=== PATIENT | female | born 1975 | race African-American/Black ===

== ENCOUNTER 2019-05-24 16:17 | Outpatient (CLI) | payer OTHER ==
--- NOTE | 2019-06-06 09:00 | MMO ---
Bilateral MAMMO Bilat Screen [id number]. CLINICAL HISTORY: Patient is 43 years old and is seen for screening. The patient has no family history of breast cancer. The patient has no personal history of cancer. VIEWS: The views performed were: bilateral craniocaudal with tomosynthesis and bilateral mediolateral oblique with tomosynthesis. FILMS COMPARED: The present examination has been compared to a prior imaging study performed at [facility] on 03/26/2016. MAMMOGRAM FINDINGS: There are scattered fibroglandular densities. There are no suspicious masses, suspicious calcifications, or new areas of architectural distortion. IMPRESSION: THERE IS NO MAMMOGRAPHIC EVIDENCE OF MALIGNANCY. A ROUTINE FOLLOW-UP MAMMOGRAM IN 1 YEAR IS RECOMMENDED. THE RESULTS OF THIS EXAM WERE SENT TO THE PATIENT. ACR BI-RADS Category 1 - Negative MAMMOGRAPHY NOTE: 1. A negative mammogram report should not delay a biopsy if a dominant of clinically suspicious mass is present. 2. Approximately 10% to 15% of breast cancers are not detected by mammography. 3. Adenosis and dense breasts may obscure an underlying neoplasm. Reported by: DAMIAN CARDOSO MD Electonically Signed: [id number]
== END 2019-05-24 16:18 | disposition home or self-care (01) ==
LOC: BICMAMMO 16:17
PROVIDERS: ATTEND Family Medicine
DX: Z12.31 Encounter for screening mammogram for malignant neoplasm of breast (principal)
CPT/HCPCS: 77063; 77067

== ENCOUNTER 2021-06-24 15:26 | Outpatient (CLI) | payer OTHER | END 2021-06-24 15:27 | disposition home or self-care (01) | LOC: BICMAMMO 15:26 | PROVIDERS: ATTEND Family Medicine | DX: Z12.31 Encounter for screening mammogram for malignant neoplasm of breast (principal) | CPT/HCPCS: 77063; 77067 ==

== ENCOUNTER 2023-10-14 15:00 | Outpatient (CLI) | payer BC | END 2023-10-14 15:01 | disposition home or self-care (01) | LOC: BICMAMMO 15:00 | PROVIDERS: ATTEND Nurse Practitioner Family | DX: Z12.31 Encounter for screening mammogram for malignant neoplasm of breast (principal) | CPT/HCPCS: 77063; 77067 ==